=== PATIENT | female | born 1965 | race Caucasian/White ===

== ENCOUNTER → 2016-07-11 | Outpatient (CLI) | payer OTHER ==
[~2016-07-11] MED LIST: /WARF5TA PO; ACET65TA OR; ALLE25CA OR; ENOX40SY SC; FLON0.05; SUCR1TA PO; TRAVATAN Z OU; VENL75TA2 PO; VIT D 2000 PO; VITA-113 PO; [UNRECOGNIZED DRUG - OTHER] PO; [UNRECOGNIZED DRUG - OTHER] PO; dexilant PO
[2016-07-11 13:24] LABS: BASO # 0.1 K/mm3 (0.0-0.2); BASO % 2.5 % (0.0-1.0); EOS # 0.1 K/mm3 (0.0-0.50); EOS % 2.8 % (0.0-3.0); LARGE UNSTAINED CELL # 0.1 K/mm3 (0.0-0.4); LARGE UNSTAINED CELL % 2.8 % (0.0-4.0); LYMPH % 41.5 % (24.0-44.0); MEAN CORPUSCULAR HGB CONC 32.8 g/dl (32.0-36.5); MEAN CORPUSCULAR VOLUME 91.4 fl (80.0-96.0); MONO # 0.3 K/mm3 (0.0-0.8); MONO % 6.4 % (0.0-5.0); PLATELET COUNT, AUTOMATED 179 k/mm3 (150-450); RED CELL DISTRIBUTION WIDTH 12.9 % (11.5-14.5); WHITE BLOOD COUNT 4.5 K/mm3 (4.0-10.0)
== END ==
LOC: M SMT 08:57
PROVIDERS: ATTEND Internal Medicine Pulmonary Disease
DX: R07.9 Chest pain, unspecified (principal); Z86.711 Personal history of pulmonary embolism

== ENCOUNTER → 2016-07-11 | Outpatient (CLI) | payer OTHER ==
[~2016-07-11] MED LIST changes: +ISOVUE-370 76% 100ML VIAL (Q9967) As Ordered ONE
--- NOTE | 2016-07-11 12:49 | REP ---
CT pulmonary angiogram: With IV contrast. History: Shortness of breath, cough and chest pain. Question pulmonary embolus. Comparison studies: Comparison CT study is from November 22, 2014. Contrast dose: 75 cc's of Isovue [address] technique: Helical scanning is acquired and overlapping 1.5 mm and contiguous 3 mm axial images are reformatted. In addition, a 3-D work station is deployed to generate thick slab maximum intensity projection images in sagittal and coronal imaging projections. CT pulmonary angiographic findings: There is good opacification of the pulmonary arterial tree and there is no CT evidence of pulmonary embolism. Maximum intensity projection images show no vessel cutoff or filling defect to suggest a pulmonary arterial embolus. The thoracic aorta enhances homogeneously and is normal in caliber and course. No dissection or aneurysm seen. There is no evidence of pleural or pericardial effusion. No infiltrate, atelectasis, or mass is seen in the lung tatum. There is a cyst in the left lobe of the liver which measures 2.1 cm in greatest diameter. This is unchanged from the comparison study. There are two other low density lesions in the liver in the right lobe at least one of which appears to be a hemangioma. These are also unchanged. No adrenal lesion is seen. The visualized upper abdominal structures are otherwise unremarkable. No bony destructive lesion is appreciated. Impression: No CT evidence of pulmonary embolism. Stable liver cysts and hemangiomas. No active disease. Signed by Robert Pugh MD 07/11/2016 02:59 P
== END ==
LOC: M RAD 11:25
PROVIDERS: ATTEND Internal Medicine Pulmonary Disease
DX: Z86.711 Personal history of pulmonary embolism (principal); K76.89 Other specified diseases of liver

== ENCOUNTER → 2016-11-15 | Outpatient (REF) | payer OTHER ==
[~2016-11-15] MED LIST changes: -ISOVUE-370 76% 100ML VIAL (Q9967) As Ordered ONE
== END ==
LOC: M LAB REF 13:34
PROVIDERS: ATTEND Physician Assistant Medical
DX: J02.9 Acute pharyngitis, unspecified (principal)

== ENCOUNTER → 2016-12-12 | Outpatient (CLI) | payer OTHER ==
[2016-12-12 13:32] LABS: MEAN CORPUSCULAR HEMOGLOBIN 30.6 pg (27.0-33.0); MEAN CORPUSCULAR VOLUME 92.5 fl (80.0-96.0); WHITE BLOOD COUNT 4.4 K/mm3 (4.0-10.0)
[2016-12-12 14:55] LABS: ALBUMIN 3.7 GM/DL (3.2-5.2); ALBUMIN/GLOBULIN RATIO 1.23 (1.00-1.93); ALKALINE PHOSPHATASE 47 U/L (45-117); ALT/SGPT 18 U/L (12-78); ANION GAP 5 MEQ/L (8-16); AST/SGOT 13 U/L (15-37); BILIRUBIN,TOTAL 0.5 MG/DL (0.2-1.0); BLOOD UREA NITROGEN 14 MG/DL (7-18); CALCIUM LEVEL 8.8 MG/DL (8.5-10.1); CARBON DIOXIDE LEVEL 30 MEQ/L (21-32); CHLORIDE LEVEL 108 MEQ/L (98-107); CHOLESTEROL LEVEL 213 MG/DL (<200); CREATININE FOR GFR 0.68 MG/DL (0.55-1.02); FREE T4 0.85 NG/DL (0.76-1.46); GLOMERULAR FILTRATION RATE > 60.0 (>51); GLUCOSE, FASTING 87 MG/DL (70-105); POTASSIUM SERUM 4.3 MEQ/L (3.5-5.1); SODIUM LEVEL 143 MEQ/L (136-145); TOTAL PROTEIN 6.7 GM/DL (6.4-8.2); TRIGLYCERIDES LEVEL 90 MG/DL (<150)
== END ==
LOC: M SMT 08:36
PROVIDERS: ATTEND Family Medicine
DX: M77.01 Medial epicondylitis, right elbow (principal); D69.6 Thrombocytopenia, unspecified; E78.00 Pure hypercholesterolemia, unspecified; F32.9 Major depressive disorder, single episode, unspecified

== ENCOUNTER → 2017-03-21 | Outpatient (REF) | payer OTHER | LOC: M LAB REF 09:36 | PROVIDERS: ATTEND Physician Assistant Medical | DX: J02.9 Acute pharyngitis, unspecified (principal) ==

== ENCOUNTER → 2017-03-25 | Outpatient (REF) | payer OTHER | LOC: M LAB REF 09:14 | PROVIDERS: ATTEND Physician Assistant | DX: J02.9 Acute pharyngitis, unspecified (principal) ==

== ENCOUNTER → 2017-09-03 | Outpatient (REF) | payer OTHER | LOC: M LAB REF 09-04 12:09 | DX: J02.9 Acute pharyngitis, unspecified (principal) ==

== ENCOUNTER → 2017-10-09 | Outpatient (CLI) | payer OTHER ==
[2017-10-09 10:32] LABS: D-DIMER QUANT < 270.0 ng/ml (<500)
== END ==
LOC: M SMT 08:48
DX: R07.89 Other chest pain (principal)
CPT/HCPCS: 36415

== ENCOUNTER → 2017-10-14 | Outpatient (CLI) | payer OTHER ==
[2017-10-14 14:34] LABS: RHEUMATOID FACTOR QUANT < 10.0 IU/ML (<15.0)
[2017-10-14 15:27] LABS: ERYTHROCYTE SEDIMENTATION RATE 11 mm/hr (0-30)
[2017-10-21 00:09] LABS: ANCA-ATYPICAL <1:20 titer (Neg:<1:20); ANGIOTENSIN 1 CONVERTING ENZYM 33 U/L (14-82); ANTINUCLEAR ANTIBODIES DIRECT Negative (Negative); ASPERGILLUS FUMIGATUS AB Negative (Negative); AUREOBASIDIUM PULLULANS Negative (Negative); CYTOPLASMIC NEUTROP AB ANCA-C <1:20 titer (Neg:<1:20); MICROPOLYSPORA FAENI AB Negative (Negative); PERINUCLEAR AB ANCA-P <1:20 titer (Neg:<1:20); PIGEON SERUM AB Negative (Negative); SJOGREN'S ANTI SS-A 0.2 AI (0.0-0.9); SJOGREN'S ANTI SS-B <0.2 AI (0.0-0.9); THERMOACTINOMYCES SACCHARI Negative (Negative); THERMOACTINOMYCES VULGARIS Negative (Negative)
== END ==
LOC: M SMT 09:50
DX: R09.1 Pleurisy (principal)
CPT/HCPCS: 82164

== ENCOUNTER → 2017-11-05 | Outpatient (CLI) | payer OTHER | LOC: M WHC 14:15 | DX: Z12.31 Encounter for screening mammogram for malignant neoplasm of breast (principal) | CPT/HCPCS: 77067 ==

== ENCOUNTER → 2018-01-22 | Outpatient (CLI) | payer OTHER ==
[2018-01-22 13:48] LABS: HEMATOCRIT 38.2 % (36.0-47.0); HEMOGLOBIN 12.2 g/dl (12.0-15.5); MEAN CORPUSCULAR HEMOGLOBIN 30.2 pg (27.0-33.0); MEAN CORPUSCULAR HGB CONC 31.9 g/dl (32.0-36.5); MEAN CORPUSCULAR VOLUME 94.6 fl (80.0-96.0); PLATELET COUNT, AUTOMATED 200 10^3/uL (150-450); RED BLOOD COUNT 4.04 10^6/uL (4.00-5.40); RED CELL DISTRIBUTION WIDTH 12.1 % (11.5-14.5); WHITE BLOOD COUNT 3.9 10^3/uL (4.0-10.0)
[2018-01-22 15:44] LABS: ALBUMIN 3.6 GM/DL (3.2-5.2); ALKALINE PHOSPHATASE 51 U/L (45-117); ALT/SGPT 22 U/L (12-78); ANION GAP 7 MEQ/L (8-16); AST/SGOT 11 U/L (7-37); BILIRUBIN,TOTAL 0.6 MG/DL (0.2-1.0); BLOOD UREA NITROGEN 13 MG/DL (7-18); CALCIUM LEVEL 8.5 MG/DL (8.5-10.1); CARBON DIOXIDE LEVEL 31 MEQ/L (21-32); CHLORIDE LEVEL 108 MEQ/L (98-107); CHOLESTEROL LEVEL 189 MG/DL (<200); CHOLESTEROL RISK RATIO 3.705 (<5); CREATININE FOR GFR 0.69 MG/DL (0.55-1.30); GLOMERULAR FILTRATION RATE > 60.0 (>51); GLUCOSE, FASTING 87 MG/DL (70-100); HDL CHOLESTEROL 51 MG/DL (>40); LDL CHOLESTEROL 118.8 MG/DL (<100); NON-HDL-C 138 MG/DL; POTASSIUM SERUM 4.4 MEQ/L (3.5-5.1); SODIUM LEVEL 146 MEQ/L (136-145); THYROID STIMULATING HORMONE 0.782 uIU/ML (0.358-3.740); TOTAL PROTEIN 6.6 GM/DL (6.4-8.2); TRIGLYCERIDES LEVEL 96 MG/DL (<150)
== END ==
LOC: M SMT 08:09
DX: D69.6 Thrombocytopenia, unspecified (principal); K21.9 Gastro-esophageal reflux disease without esophagitis; M35.00 Sjogren syndrome, unspecified; E78.00 Pure hypercholesterolemia, unspecified
CPT/HCPCS: 84443

== ENCOUNTER → 2018-04-06 | Outpatient (REF) | payer OTHER ==
[2018-04-06 15:00] LABS: D-DIMER QUANT < 270.0 ng/ml (<500)
[2018-04-07 14:11] LABS: ANTI DOUBLE STRAND-DNA AB <1 IU/mL (0-9)
== END ==
LOC: M LAB REF 13:14
DX: R09.1 Pleurisy (principal)
CPT/HCPCS: 85379

== ENCOUNTER → 2018-09-29 | Outpatient (REF) | payer OTHER ==
[~2018-09-29] MED LIST changes: -/WARF5TA PO; +COUM1TAB17 PO; -ENOX40SY SC; +LOVE1INJ SC
[2018-09-29 20:37] LABS: BASO # 0.1 10^3/uL (0.0-0.2); BASO % 1.4 % (0.0-1.0); EOS # 0.2 10^3/uL (0.0-0.50); EOS % 2.7 % (0.0-3.0); HEMATOCRIT 40.1 % (36.0-47.0); HEMOGLOBIN 12.7 g/dl (12.0-15.5); LYMPH # 2.1 10^3/uL (1.5-4.5); LYMPH % 37.5 % (24.0-44.0); MEAN CORPUSCULAR HEMOGLOBIN 29.8 pg (27.0-33.0); MEAN CORPUSCULAR HGB CONC 31.7 g/dl (32.0-36.5); MEAN CORPUSCULAR VOLUME 94.1 fl (80.0-96.0); MONO # 0.4 10^3/uL (0.0-0.8); MONO % 7.5 % (0.0-5.0); NEUTROPHILS # 2.8 10^3/uL (1.8-7.7); NEUTROPHILS % 50.7 % (36.0-66.0); PLATELET COUNT, AUTOMATED 219 10^3/uL (150-450); RED BLOOD COUNT 4.26 10^6/uL (4.00-5.40); WHITE BLOOD COUNT 5.6 10^3/uL (4.0-10.0)
== END ==
LOC: M LAB REF 17:44
PROVIDERS: ATTEND Internal Medicine Pulmonary Disease
DX: R09.1 Pleurisy (principal)

== ENCOUNTER → 2019-04-27 | Outpatient (CLI) | payer OTHER ==
--- NOTE | 2019-04-27 13:34 | REPMRS ---
Patient History The patient states she has not had a clinical breast exam in over a year. Patient has history of other cancer at age 39. Family history of breast cancer at age 50 or over in maternal aunt, breast cancer at age 50 or over in maternal grandmother. Benign excisional biopsy of the left breast. No Hormone Replacement Therapy Digital Woman Screen Mammo: April 27, 2019 - Exam #: [id number] Bilateral CC and MLO view(s) were taken. Technologist: Marissa Poole, Technologist Prior study comparison: November 05, 2017, digital woman screen mammo performed at [facility]. December 29, 2015, digital woman screen mammo performed at [facility]. August 11, 2014, digital woman screen mammo performed at [facility]. FINDINGS: The breast tissue is heterogeneously dense. This may lower the sensitivity of mammography. There is a moderate amount of heterogeneously dense fibroglandular tissue which is fairly symmetric. There is no interval development of dominant mass, architectural distortion, or grouped microcalcification typical of malignancy. There has been no change in the appearance of the mammogram from the prior studies. 3-D tomosynthesis shows no additional findings. Assessment: BI-RADS/ACR category 1 mammogram. Negative Mammogram. Recommendation Routine screening mammogram of both breasts in 1 year (for women over age 40). This patient's Lifetime Breast Cancer RIsk is estimated at 13.2 %. This mammogram was interpreted with the aid of an FDA-approved computer-aided dectection system. Electronically Signed By: Wesley Pugh MD 04/27/19 [id number]
== END ==
LOC: M WHC 11:34
PROVIDERS: ATTEND Nurse Practitioner Adult Health
DX: Z12.31 Encounter for screening mammogram for malignant neoplasm of breast (principal); Z85.9 Personal history of malignant neoplasm, unspecified; Z86.018 Personal history of other benign neoplasm